=== PATIENT | male | born 1970 | race Caucasian/White ===

== ENCOUNTER 2022-05-29 23:21 | Emergency (ER) | payer BC, OTHER ==
[2022-05-30] MEDS ORDERED: methylPREDNISolone Sodium Succinate 125 MG/2 ML SDV IM ONE (00:27)
== END 2022-05-30 00:42 | disposition home or self-care (01) ==
LOC: JP.ED 23:21
DX: S39.012A Strain of muscle, fascia and tendon of lower back, initial encounter (principal); M51.26 Other intervertebral disc displacement, lumbar region; J45.909 Unspecified asthma, uncomplicated; Z79.899 Other long term (current) drug therapy; Z90.49 Acquired absence of other specified parts of digestive tract; X50.9XXA Other and unspecified overexertion or strenuous movements or postures, initial encounter
CPT/HCPCS: 96372; 99283; J2930